=== PATIENT | male | born 1995 | race Caucasian/White ===

== ENCOUNTER 2017-10-16 22:35 | Emergency (ER) | payer OTHER, SELFPAY ==
[2017-10-16 22:36] VITALS: BP 135/80; PULSE 57; RESP 18; TEMP 36.7; O2SAT 98; BMI 24.4
--- NOTE | 2017-10-16 22:56 | ED.DCSUM_ITS ---
- ER Visit Summary Date of Service: 10/16/17 Chief Complaint: [] Left arm numbness History of Present Illness: The patient is a 21 M complaining of left upper extremity paresthesias beginning earlier today. 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 Denies any injury or increased use to the left upper extremity. Denies DVT or PE risk factors. Physical Examination: [] Afebrile, vital signs stable. 20-year-old male in no acute distress. Cardiovascular exam is regular rate and rhythm. Lungs are clear to auscultation. Abdomen is soft and nontender. Examination of the extremities reveals plus 5 out of 5 left upper extremity muscle strength. Intact sensation across the radial nerve, median nerve, ulnar nerve distribution in the left upper extremity. Negative Lukas's test on the left upper extremity. Cap refill less than 3 seconds. Test Results: [] None. Emergency Department Course and Treatment: [] Patient is a very benign examination. He reports anxiety because of the history of previous DVT. He is requesting Doppler ultrasound. I informed him that that was unavailable at this time at this facility. He was given an outpatient form to obtain a Doppler ultrasound tomorrow morning. Treatment Plan: [] Discharge to follow-up with PCP. Disposition: [] Discharge, stable. Impression: [] Left upper extremity paresthesias This note was generated with [employer] dictation software. It may contain incorrect words, spelling, and punctuation that were not noted in review of the chart prior to signing ED Disposition - Plan for ED Patient: Disposition: Home or Assisted Living Chief Complaint: Upper Extremity Injury Instructions: ED Paraesthesias Referrals: Casey Yin DO [Primary Care Provider] -
--- NOTE | 2017-10-16 22:59 | DCINST.ED_ITS ---
ED Disposition - Plan for ED Patient: Disposition: Home or Assisted Living Chief Complaint: Upper Extremity Injury Instructions: ED Paraesthesias Referrals: Casey Yin DO [Primary Care Provider] -
--- NOTE | 2017-10-16 23:15 | ED.RN ---
pt given written and verbal discharge instructions and out patient order for us of left arm. pt verbalizes understanding. pt denies any further questions. pt ambulatory home with friend.
== END 2017-10-16 23:18 | disposition home or self-care (01) ==
LOC: ED 23:08
PROVIDERS: Emergency Provider Emergency Medicine; Family Provider Pediatrics; PCP Pediatrics
DX: R20.2 Paresthesia of skin (principal); Z86.718 Personal history of other venous thrombosis and embolism
CPT/HCPCS: 99282

== ENCOUNTER → 2017-10-17 10:52 | Outpatient (CLI) | payer OTHER, SELFPAY ==
--- NOTE | 2017-10-17 10:57 | VDUE_ITS ---
Reason For Study: LUE PAIN Left Proximal Left jugular vein is spontaneous, widely patent, phasic, with no intraluminal echogenicity noted. Left subclavian vein is spontaneous, widely patent, phasic, with no intraluminal echogenicity noted. Left Arm Left axillary vein is spontaneous, patent, phasic, competent, compressible and demonstrates augmentation. Left brachial vein is compressible. Left cephalic vein is compressible. Left basilic vein is compressible. Left Lower Arm Left radial vein is compressible. Left ulnar vein is compressible. < Interpretation Summary Deep veins of the left upper extremity are patent and compressible segmentally. There is no evidence of deep vein thrombosis. The superficial veins of the left upper extremity, the basilic and cephalic veins, are patent and compressible. There is no evidence of left upper extremity superficial thrombophlebitis involving the veins imaged. Ordering Physician: Torsten Swann Referring Physician: Casey Yin Performed By: Reyna Yanez, J LUIS, RVT
== END ==
PROVIDERS: Family Provider Pediatrics; PCP Pediatrics; Visit Provider Emergency Medicine
DX: M79.602 Pain in left arm (principal)
CPT/HCPCS: 93971

== ENCOUNTER → 2020-10-16 | Outpatient (CLI) | payer OTHER, SELFPAY ==
[2020-10-16 15:16] LABS: D-Dimer Quantitative (DVT/PE) 0.28 FEU/ug/m (0.27-0.49)
== END | disposition home or self-care (01) ==
LOC: LABSPEC 14:53
PROVIDERS: PCP Pediatrics; Visit Provider Family Medicine
DX: R06.02 Shortness of breath (principal); Z86.718 Personal history of other venous thrombosis and embolism
CPT/HCPCS: 85379

== ENCOUNTER → 2022-05-16 | Outpatient (CLI) | payer OTHER, SELFPAY ==
[2022-05-23 19:07] LABS: Clam <0.10 kU/L (Class 0); Codfish <0.10 kU/L (Class 0); Corn <0.10 kU/L (Class 0); Egg, White <0.10 kU/L (Class 0); Milk (Cow) <0.10 kU/L (Class 0); Peanut <0.10 kU/L (Class 0); SCALLOP <0.10 kU/L (Class 0); Shrimp <0.10 kU/L (Class 0); Soybean <0.10 kU/L (Class 0); Walnut, (Food) <0.10 kU/L (Class 0); Wheat <0.10 kU/L (Class 0)
[2022-05-24 12:25] LABS: SESAME SEED <0.10 kU/L (Class 0)
== END | disposition home or self-care (01) ==
LOC: LABSPEC 16:26 → LAB 05-17 06:34
PROVIDERS: PCP Family Medicine; Visit Provider Otolaryngology
DX: T78.40XA Allergy, unspecified, initial encounter (principal); X58.XXXA Exposure to other specified factors, initial encounter
CPT/HCPCS: 36415; 86003

== ENCOUNTER 2024-03-02 21:58 | Emergency (ER) | payer OTHER, SELFPAY ==
[2024-03-02 21:59] VITALS: BP 136/68; PULSE 77; RESP 18; TEMP 36.6; O2SAT 99
[2024-03-02 22:05] VITALS: BMI 29.3
--- NOTE | 2024-03-02 22:12 | US_ITS ---
STUDY: VENOUS DOPPLER ULTRASOUND - RIGHT LOWER EXTREMITY REASON FOR EXAM: Male, 28 years old. RT POSTERIOR CALF PAIN, S/P RT BROKEN ANKLE TECHNIQUE: Ultrasound evaluation of the deep vein system to include stock-scale imaging and compression was performed. Stock-scale imaging and Doppler sonographic evaluation, including duplex spectral analysis and qualitative color flow sonography, was performed. COMPARISON: None. FINDINGS: Common Femoral Vein: Normal compression, spontaneity and augmentation. Normal color Doppler. Common Femoral Vein/Greater Saphenous Junction: Normal compression, spontaneity and augmentation. Normal color Doppler. Femoral Proximal: Normal compression, spontaneity and augmentation. Normal color Doppler. Femoral Middle: Normal compression, spontaneity and augmentation. Normal color Doppler. Femoral Distal: Normal compression, spontaneity and augmentation. Normal color Doppler. Popliteal Vein: Normal compression, spontaneity and augmentation. Normal color Doppler. Posterior Tibial Vein: Normal compression, spontaneity and augmentation. Normal color Doppler. Peroneal Vein: Normal compression, spontaneity and augmentation. Normal color Doppler. US/Venous Duplex Imag/Limited/Uni IMPRESSION: No evidence for DVT. Electronically Signed: Yo Singer MD at 22:50 EDT ,
--- NOTE | 2024-03-02 22:23 | EX.ED.DYSGE1 ---
HPI History of Present Illness Chief Complaint: Lower Extremity Injury Informant: patient and spouse/S.O. Narrative Narrative: Patient is a 28-year-old male who broke his fifth metatarsal and sprained his right ankle few weeks ago. He is in a walking boot and is following up with orthopedic. He states he saw them today and was informed that everything is healing appropriately. However later this evening he noticed he was having pain in his right calf. He states that other than injuring his ankle and foot that there was no trauma to the calf and that overall he has been only performing minor activity with his right lower leg. He states that he noticed pain in the right calf that is worse with palpation and motion. He denies chest pain or shortness of breath or pleuritic chest pain. However over 10 years ago he fractured his left ankle and then developed a blood clot in his left. He states he underwent genetic testing and does not have a clotting disorder and he is not any type of anticoagulant. However with the recent fracture and now pain in the calf he has concern for a repeat blood clot and therefore comes in for evaluation. [facility] Medical History Blood clot in leg Tibia fracture Fracture of fifth metatarsal bone of right foot with routine healing Home Medications ?Medication ?Instructions ?Recorded ?Last Taken ?Type cetirizine 10 mg capsule (Zyrtec) 10 mg PO DAILY PRN allergy symptoms 03/01/24 Unknown History Allergy/AdvReac Type Severity Reaction Status Date / Time Environmental Allergies: Allergy NEEDS Verified 03/02/24 21:59 Uncoded (dust mites) FOLLOW-UP mold Allergy Other Verified 03/02/24 21:59 pollen extracts Allergy Other Verified 03/02/24 21:59 Family History (Updated 03/01/24 @ 10:10 by Evie Erickson) Other CVA (cerebral vascular accident) Cancer Myocardial infarction Surgical History H/O wisdom tooth extraction Social History (Updated 03/01/24 @ 10:10 by Evie Erickson) household members: spouse Smoking Status: Never smoker alcohol intake: current alcohol intake frequency: holidays/special occasions only ROS ROS ED Constitutional Constitutional ED: Denies chills or fever(s) ENT ENT ED: Denies sore throat Cardiovascular Cardiovascular: Denies chest pain, palpitations or racing heartbeat Respiratory/Chest Respiratory/Chest: Denies cough or dyspnea Gastrointestinal Gastrointestinal: Denies abdominal pain, diarrhea, nausea or vomiting Genitourinary Genitourinary ED: Denies dysuria Musculoskeletal Musculoskeletal: Reports other Details: Positive right calf ankle and foot pain Integumentary Denies rash Neurologic Neurologic: Denies headache(s), paresthesias or weakness Hematologic/Lymphatic Hematologic/Lymphatic: Denies easy bleeding or easy bruising EXAM Physical Exam Const Vital Signs: 03/02/24 21:59 Temperature 97.9 F Temperature Source Temporal Pulse Rate 77 Respiratory Rate 18 Blood Pressure 136/68 H Blood Pressure Mean 90 Pulse Ox 99 Oxygen Delivery Method Room Air Positive well nourished and well developed General Appearance ED: well developed; Negative for pallor HEENT HEENT Narrative: Normocephalic atraumatic Eyes PERRL and EOMs intact bilaterally General Eye ED: Negative for scleral icterus Neck supple Resp normal respiratory effort and clear to auscultation bilaterally Cardio regular rate and regular rhythm Extremity Extremity Narrative: Right lower extremity is neurovascularly intact. There is soft tissue swelling of the right ankle and foot consistent with recent fracture. There is mild asymmetric nonpitting edema of the right calf compared to left with positive Homans' sign on right. No overlying erythema or warmth no secondary findings to suggest cellulitis or abscess. Neuro oriented x3, CN's II-XII intact bilaterally and no sensory deficits noted Sensorium / Orientation: alert Psych mental status grossly normal Skin no rashes or lesions noted General Skin Exam: Negative for jaundice or pallor MDM MDM MDM Narrative Medical decision making narrative: Patient arrived to the ER with stable vitals. He did have mild asymmetric swelling with calf tenderness and a remote history of DVT. Therefore concern is for DVT versus muscular strain. There is no overlying soft tissue changes to suggest infection such as cellulitis or abscess I feel there is no need for laboratory studies. A venous duplex was obtained which revealed no sign of clot and therefore patient is otherwise safe for discharge and there is no need for anticoagulation. History & Record Review Discussion w/independent historian: Patient and Significant other Radiography Diagnostic Testing: Clinical Impression(s) from Imaging Studies Venous Duplex 03/02/24 22:12 IMPRESSION: No evidence for DVT. Electronically Signed: Yo Singer MD at 22:50 EDT , Discharge Plan Triage Chief Complaint: Lower Extremity Injury ED Provider: Gamal Singh Dx/Rx/DC Orders Clinical Impression: Right calf pain, Fracture of fifth metatarsal bone of right foot with routine healing Instructions: ED Muscle Strain, Extremity Prescriptions: No Action Zyrtec 10 mg capsule 10 mg PO DAILY PRN (Reason: allergy symptoms) Primary Care Provider: Johny Lay Referrals: Johny Lay MD [Primary Care Provider] - Activity Restrictions/Additional Instructions: Your venous duplex shows no sign of DVT/blood clot in your right calf. Continue your physical therapy exercises as directed by orthopedic physician and continue to monitor the area for pain redness and/or swelling. Return to the ER should you have any further concerns Print Language: Greek Disposition Disposition: Home, Self Care
[2024-03-02 23:07] VITALS: BP 141/64; PULSE 70; RESP 16; TEMP 36.3; O2SAT 98
== END 2024-03-02 23:09 | disposition home or self-care (01) ==
PROVIDERS: Emergency Provider Emergency Medicine; PCP Family Medicine; Visit Provider Emergency Medicine
DX: M79.661 Pain in right lower leg (principal); S92.351D Displaced fracture of fifth metatarsal bone, right foot, subsequent encounter for fracture with routine healing; X58.XXXD Exposure to other specified factors, subsequent encounter; Z86.718 Personal history of other venous thrombosis and embolism
CPT/HCPCS: 93971; 99282

== ENCOUNTER 2024-04-14 15:30 | Outpatient (RCR) | payer OTHER, SELFPAY ==
--- NOTE | 2024-03-11 13:50 | HP.PTEVAL_ITS ---
Patient's Visit Information Visit Information Visit Information: RENAE CAICEDO is a 28 year old M referred to Physical Therapy by Dr. Kam Ellis MD with a diagnosis of R fracture of 5th metatarsal. Date of Evaluation: 03/10/24 Physical Therapist: TOREY Couch Visit Plan Frequency: 2x /Week Duration: 3 Months Plan: 2X/ week for 12 weeks for R ankle and foot AROM/stretching/strengthening, gait training. Pt is WBAT in the boot but able to get out of the boot for NWB exercises at this point HEP: seated heel and toe raises, towel scrunches, ankle alphabet Subjective Subjective: Pt was playing imageloop and he thinks that he stepped in a crack on the [place] and he rolled his ankle and the 5th metatarsal broke but the sprain is the most panful part (February 14). A week and a half ago he could start doing some WBAT in the boot and some movements. He has increase pain with inversion or weight bearing. He is ok DF/PF until end ranges and then he has some pain. He still has pain in his toes (sprained those too). He will be wearing the boot for 6-8 weeks and gradual WBAT in boot. He is still sleeping in boot in the bed because of the cat. Pain R lateral ankle: Pain Intensity (Out of 10): 1 Base of 5th met: Pain Intensity (Out of 10): 0 top of toes: Pain Intensity (Out of 10): 0 Objective Objective: Gait: B crutches and walking boot with partial WB on the R R ankle AROM: 11 DF, 24, INV 20. EV 9 L ankle AROM: 20, 42, 44, 15 R ankle MMT: NT due to fracture L ankle MMT: DF 16.1 PF 18, INV 11 and EV 8.6 R ankle girth measurements: 26,2, 25.2 L ankle girth measurements: 26, 26.1 Balance/Special Test Scores Lower Extremity Functional Score: 23 Goals Goal 1:: I HEP Goal Time Frame: 6-8 Weeks Goal 2:: Be able to walk without any antalgic gait by discharge Goal Time Frame: 6-8 Weeks Goal 3:: Increase R ankle AROM (at the time of the initial eval R ankle AROM: 11 DF, 24, INV 20. EV 9 L ankle AROM: 20, 42, 44, 15) Goal Time Frame: 6-8 Weeks Goal 4:: Be able to complete R Single Leg Heel and toe raises 3 X 10 without pain or difficulty Goal Time Frame: 6-8 Weeks Rehabilitation Potential Rehabilitation Potential: Good Anticipated Interventions Patient/Client Instruction: Educate patient on: Condition and Plan of Care For the Purpose of:: To decrease pain, To decrease swelling/inflammation, To increase ROM, To improve nutrient delivery to tissue, To increase oxygenation perfusion, To improve muscle performance and motor function, To improve ability to perform ADL's, To increase tolerance to activity/condition/position, To improve performance and independence with ADL's, To decrease level of supervision to perform tasks, To improve ability of physical actions for home/community/work/leisure, To improve gait and locomotor functions, To improve health of tissue, To decrease soft tissue restriction, To increase flexibility/ROM, To improve balance and To improve safety with gait Therapeutic Exercise to Include: Strength training, Balance training, Coordination, Postural training, Flexibilty training, Gait and locomotor training, Neuromotor development, Passive ROM and Active ROM For the Purpose of:: To decrease pain, To increase ROM, To improve nutrient delivery to tissue, To increase oxygenation perfusion, To improve muscle perfo rmance and motor function, To improve ability to perform ADL's, To increase tolerance to activity/condition/position, To improve performance and independence with ADL's, To decrease level of supervision to perform tasks, To improve ability of physical actions for home/community/work/leisure, To improve gait and locomotor functions, To improve health of tissue, To decrease soft tissue restriction, To increase flexibility/ROM, To improve balance and To improve safety with gait Functional Training to Include: Gait training For the Purpose of:: To improve gait and locomotor functions Manual Therapy Techniques to Include: Passive ROM and Soft tissue mobilization For the Purpose of:: To decrease pain, To increase ROM, To improve nutrient delivery to tissue and To improve muscle performance and motor function Text: Thank you for the opportunity to evaluate your patient. For Medicare and Medicare HMO plans, please review the plan of care and approve it. It will need to be FAXED BACK to us at [phone] for Medicare purposes. For Medicare only, by signing this I certify the plan of care. Please let me know if there are questions or concerns regarding this plan of care. Physician Signature: Date:
--- NOTE | 2024-04-14 16:19 | HP.PTDCSUM ---
Discharge Summary D/C summary: It has been my pleasure to treat RENAE CAICEDO referred by Dr. Kam Ellis MD, with the diagnosis of R fracture of 5th metatarsal for a total of 7 visit(s). Discharge Date: 04/14/24 Please see the following information for a summary of their discharge status. Subjective Subjective: Patient reports it gets swollen by end of the day with increased activity. Pain R lateral ankle: Pain Intensity (Out of 10): 1 Base of 5th met: Pain Intensity (Out of 10): 1 top of toes: Pain Intensity (Out of 10): 1 Overall Improvement % Improvement: 50 Objective Objective/Function: Patient feels he is ready to be D/C from therapy. Is very pleased with progress made since starting. Had no increased pain w/ today's exercises. Goals Goal 1:: I HEP Goal Progress: Goal Met Goal 2:: Be able to walk without any antalgic gait by discharge Goal Progress: Goal Met Goal 3:: Increase R ankle AROM (at the time of the initial eval R ankle AROM: 11 DF, 24, INV 20. EV 9 L ankle AROM: 20, 42, 44, 15) Goal 4:: Be able to complete R Single Leg Heel and toe raises 3 X 10 without pain or difficulty Plan Plan: Cleared by doctor to progress WBAT 2X/ week for 12 weeks for R ankle and foot AROM/stretching/strengthening, gait training. Pt is WBAT in the boot but able to get out of the boot for NWB exercises at this point HEP: seated heel and toe raises, towel scrunches, ankle alphabet D/C Information Discharge Comments: DC PT to HEP d/c sentence: If there are questions or concerns regarding this patient's physical therapy, please feel free to call me at [phone]. Thank you for the referral of this patient. Sincerely, Melissa Hart, MPT Balance/Gait/Functional tests Balance/Special Test Scores Lower Extremity Functional Score: 52 Improvement % Improvement: 50
== END 2024-04-14 19:00 | disposition home or self-care (01) ==
LOC: PT 15:30
PROVIDERS: PCP Family Medicine; Referring Provider Orthopaedic Surgery Sports Medicine; Visit Provider Orthopaedic Surgery Sports Medicine
DX: S92.351D Displaced fracture of fifth metatarsal bone, right foot, subsequent encounter for fracture with routine healing (principal)
CPT/HCPCS: 97110; 97161